=== PATIENT | female | born 1960 | race Caucasian/White ===

== ENCOUNTER 2020-06-04 09:47 | Emergency (ER) | payer BC ==
[~2020-06-04] VITALS: Ht 172.7 cm; Wt 63.5 kg
[2020-06-04] MEDS ORDERED: OMEGA 3 PO (10:22)
[2020-06-04] MEDS ORDERED: ACET-2605 PO (10:22)
[2020-06-04] MEDS ORDERED: UBID100C13 PO (10:22)
[2020-06-04] MEDS ORDERED: ASPI81TA31 PO (10:22)
[2020-06-04] MEDS ORDERED: D3 PO (10:22)
[2020-06-04] MEDS ORDERED: HYDROXYCHLOROQUINE PO (10:22)
[2020-06-04] MEDS ORDERED: ZOLP5TAB8 PO (10:22)
[2020-06-04] MEDS ORDERED: ZINC PO (10:22)
[2020-06-04] MEDS ORDERED: PANT40TA49 PO (10:22)
[2020-06-04 11:20] LABS: *BILIRUBIN,URIN 1+ (NEGATIVE); *BLOOD, URINE TRACE (NEGATIVE); *CLARITY,URINE CLEAR (CLEAR); *COLOR,URINE YELLOW (YELLOW); *KETONES,URINE TRACE (NEGATIVE); *UROBILINOGEN,URINE 0.2 E.U./dl (NORMAL); LEUKOCYTE ESTERASE ,URINE NEGATIVE (NEGATIVE); NITRITE, URINE NEGATIVE (NEGATIVE); PH,URINE 5.5 (5.0-8.0); UGLUCOSE NEGATIVE (NEGATIVE)
[2020-06-04 11:31] LABS: BASOPHILS % (AUTO) 0.3 % (0.0-2.0); EOSINOPHILS # (AUTO) 0.1 K/uL (0.0-0.7); EOSINOPHILS % (AUTO) 1.6 % (0.0-7.0); HEMATOCRIT 42.2 % (31.2-41.9); HEMOGLOBIN 14.3 g/dL (10.9-14.3); LYMPHOCYTES # (AUTO) 0.8 K/uL (20.0-40.0); MEAN CORPUSCULAR HEMOGLOBIN 32.9 uug (24.7-32.8); MEAN CORPUSCULAR HGB CONC 34 g/dL (32.3-35.6); MONOCYTES # (AUTO) 0.7 K/uL (2.0-10.0); MONOCYTES % (AUTO) 12.3 % (0.0-11.0); NEUTROPHILS # (AUTO) 4.3 K/uL (1.8-8.9); NEUTROPHILS % (AUTO) 71.8 % (38.5-71.5); PLATELET COUNT (AUTO) 158 K/uL (179-408); RED BLOOD CELL COUNT(AUTO) 4.35 MIL/uL (3.63-4.92)
[2020-06-04 11:34] LABS: CREATININE 1.1 mg/dL (0.6-1.3); POTASSIUM 5.1 mmol/L (3.5-5.1)
--- NOTE | 2020-06-04 11:44 | NUR ---
chaperoned md with bedside us.
[2020-06-04 11:50] LABS: BILIRUBIN,DIRECT 0.1 mg/dL (0.0-0.2); BILIRUBIN,TOTAL 0.5 mg/dL (0.2-1.0); TOTAL PROTEIN, SERUM 6.1 g/dL (6.4-8.2)
[2020-06-04 11:51] LABS: THYROID STIMULATING HORMONE 2.348 mIU/mL (0.358-3.740)
[2020-06-04 12:40] LABS: BACTERIA,URINE FEW /HPF (NONE SEEN); RBC,URINE 0-3 /HPF (0-3); SQUAMOUS EPITHELIAL CELL,UR FEW /HPF (NONE SEEN); WBC,URINE NONE SEEN /HPF (0-3)
--- NOTE | 2020-06-04 12:48 | NUR ---
Patient discharged to home in stable condition. Written and verbal after care instructions given. Patient verbalizes understanding of instructions. Stressed follow up or return to ER for worsening s/s. pt says feels better, deneis any cp, sob at this time.
[2020-06-04 12:49] VITALS: BP 101/66
== END 2020-06-04 13:10 | disposition home or self-care (01) ==
LOC: ER 09:50
DX: U07.1 COVID-19 (principal); R63.5 Abnormal weight gain; R60.9 Edema, unspecified; M34.9 Systemic sclerosis, unspecified; R80.9 Proteinuria, unspecified; D69.6 Thrombocytopenia, unspecified; Z79.82 Long term (current) use of aspirin; Z79.899 Other long term (current) drug therapy
CPT/HCPCS: 36415; 70030-TC; 71045; 84443; 85025; 93005; A4663